=== PATIENT | female | born 2000 | race Two or more races ===

== ENCOUNTER 2020-09-06 14:00 | Inpatient (IN) | payer OTHER ==
[~2020-09-06] VITALS: Ht 157.5 cm; Wt 3.2 kg
[2020-10-11] MEDS ORDERED: ATABEX DHA 200200 MG PO (09:10)
== END 2020-10-15 10:00 | disposition home or self-care (01) | DRG 788 ==
LOC: SURG-SUITE 10-11 06:10 → LDR 10-11 06:10 → SURG-SUITE 10-11 21:05
PROVIDERS: ADMIT Obstetrics & Gynecology Maternal & Fetal Medicine; ATTEND Obstetrics & Gynecology Maternal & Fetal Medicine
PROC: 3E033VJ Introduction of Other Hormone into Peripheral Vein, Percutaneous Approach (ICD-10-PCS; 2020-10-11)
PROC: 4A1HXFZ Monitoring of Products of Conception, Cardiac Rhythm, External Approach (ICD-10-PCS; 2020-10-11)
PROC: 10D00Z1 Extraction of Products of Conception, Low, Open Approach (ICD-10-PCS; principal; 2020-10-11 19:15)
DX: O62.1 Secondary uterine inertia (principal); Z3A.40 40 weeks gestation of pregnancy; Z37.0 Single live birth; Z20.828 Contact with and (suspected) exposure to other viral communicable diseases